=== PATIENT | male | born 1955 | race African-American/Black ===

== ENCOUNTER 2023-11-28 14:08 | Emergency (ER) | payer OTHER ==
[2023-11-28 14:15] VITALS: BP 147/80; PULSE 58; RESP 18; TEMP 98; BMI 29.2
[2023-11-28] MEDS ORDERED: LIDOCAINE 4% PATCH TP ONE (15:46)
[2023-11-28] MEDS ORDERED: ACETAMINOPHEN 325 MG TABLET (FP) ONE (15:46)
[2023-11-28] MEDS: LIDOCAINE 4% PATCH TP ONE (15:53)
[2023-11-28] MEDS: ACETAMINOPHEN 500 MG TABLET (FP) PO ONE (15:53)
[2023-11-28] MEDS ORDERED: LIDOCAINE PATCH REMOVAL MC SCH (22:00)
== END 2023-11-28 17:28 | disposition home or self-care (01) ==
LOC: JERFT 14:08
DX: M25.511 Pain in right shoulder (principal); V53.5XXA Driver of pick-up truck or van injured in collision with car, pick-up truck or van in traffic accident, initial encounter
CPT/HCPCS: 71046-TC-FY; 73030-TC-RT-FY; 73200-TC-RT; 73502-TC-LT-FY; 73562-TC-LT-FY; 99284-25